=== PATIENT | male | born 1955 | race Caucasian/White ===

== ENCOUNTER 2019-12-02 09:23 | Emergency (ER) | payer MEDICARE, BC ==
[~2019-12-02] VITALS: Ht 177.8 cm; Wt 73.0 kg
[2019-12-02 09:27] VITALS: BP 132/78
== END 2019-12-02 10:47 | disposition home or self-care (01) ==
LOC: ER 10:37
DX: Z03.818 Encounter for observation for suspected exposure to other biological agents ruled out (principal)
CPT/HCPCS: 87635; 99283